=== PATIENT | female | born 1980 | race Caucasian/White ===

== ENCOUNTER 2017-05-19 16:10 | Inpatient (IN) | payer BC ==
[2017-05-19] MEDS ORDERED: CITRIC ACID/SODIUM CITRATE 30 ML UNIT-DOSE CUP PO ONE (16:52)
[2017-05-19] MEDS ORDERED: ELECTROLYTE-148 SOLN 500 ML IV ONE (16:52)
[2017-05-19] MEDS ORDERED: CEFAZOLIN 1 GM/D5W 50 ML IVPB ONE (16:54)
[2017-05-19] MEDS ORDERED: TUBERCULIN PPD 5 TU/0.1ML SYRINGE (IN PATIENT USE ONLY) ID ONE (16:54)
[2017-05-19] MEDS ORDERED: ELECTROLYTE-148 SOLN 1,000 ML IV SCH (17:00)
--- NOTE | 2017-05-19 17:00 | HP ---
Past Medical History - Admission History of Present Illness: 36 yo @ 36 5/7 wks by first trimester ultrasound, EDC 06/11/2017 complicated by: 1. AMA - s/p normal harmony screen 2. Breech presentation, s/p failed attempt at external cephalic version on 2016 3. Oligohydramnios - 5.4 cm, BPP today 03/23 4. Multiparous, desiring permanent sterilization Patient presents after being seen in the office and was found to have an AMANDA of 5cm. She presents for delivery. She denies any complaints. She reports movement, denies leakage of fluid, vaginal bleeding or contractions. History Source: Patient Limitations to Obtaining History: No Limitations - Past Medical History Cardiovascular: No: HTN Pulmonary: No: Asthma ...: 4 ...Para: 2 ...Term: 2 ...: 0 ...Spon : 1 ...EDC by Dates: 06/08/17 ...EDC by Sono: 06/11/17 Heme/Onc: No: Anemia - Past Surgical History Hx Myomectomy: No Hx Transabdominal Cerclage: No Additional Surgical History: 1986 - cyst removal (face) - Alcohol/Substance Use Hx Alcohol Use: No History of Substance Use: reports: None Home Medications - Allergies Allergies/Adverse Reactions: Allergies Allergy/AdvReac Type Severity Reaction Status Date / Time No Known Allergies Allergy Verified 05/19/17 16:54 - Home Medications Home Medications: Ambulatory Orders Vit No.130/Iron/FA [ Vitamins] 1 each PO DAILY 05/11/17 Doxylamine Succinate [Unisom] 25 mg PO DAILY 05/19/17 Family Disease History - Family Disease History Family History: Denies Review of Systems - Review of Systems Constitutional: reports: No Symptoms Neck: reports: No Symptoms Cardiovascular: reports: No Symptoms Respiratory: reports: No Symptoms Gastrointestinal: reports: No Symptoms Genitourinary: reports: No Symptoms Musculoskeletal: reports: No Symptoms Neurological: reports: No Symptoms Hematology/Lymphatic: reports: No Symptoms Psychiatric: reports: No Symptoms Physical Exam - Maternity Constitutional: Yes: Well Nourished, No Distress, Calm Neck: Yes: Supple, Trachea Midline Cardiovascular: Yes: Regular Rate and Rhythm Lungs: Clear to auscultation - Abdominal Exam/OB Number of Fetuses: Single Presentation: Breech Contractions: Yes Regularity: Irregular Heart Rate (range): 155 Category: I Accelerations: Non-Uniform Decelerations: None - Vaginal Exam/OB Vaginal Bleediing: No Dilatation (cm): 2 - Physical Exam Edema: No Psychiatric: Yes: Alert, Oriented - Labs Lab Results: PNL: A positive, antibody negative, RPR NR, HBS Ag negative, Rubella Immune, HIV negative Hemorrhage Risk Assessment - Risk Factors Medium Risk Factors: Yes: None High Risk Factors: Yes: None Risk Score: 1 Risk Level: Medium Risk Assessment/Plan 36 yo @ 36 5/7 wks, breech, oligohydramnios 1. Admit to L&D 2. Consents reviewed and signed. Previously discussed risks of CD including but not limited to infection, bleeding requiring transfusion and damage to surrounding organs such as the bowel or bladder. Discussed risk of injury to . Discussed risk of wound infection and separation. Reviewed risks of tubal ligation failure, ectopic , regret. 3. Category I FHT 4. 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
[2017-05-19 17:23] VITALS: BMI 28.3
[2017-05-19 20:55] LABS: VENOUS PH 7.31 (7.32-7.42)
[2017-05-19] MEDS ORDERED: METHYLERGONOVINE MALEATE 0.2 MG/1 ML AMP IM PRN (21:01)
[2017-05-19] MEDS ORDERED: IBUPROFEN 800 MG/8 ML IJ IVPB PRN ×2 (21:01→21:09)
[2017-05-19] MEDS ORDERED: oxyCODONE HCL 5 MG TABLET PO PRN ×2 (21:01)
[2017-05-19] MEDS ORDERED: ONDANSETRON 4 MG/2 ML VIAL IVPUSH PRN (21:10)
[2017-05-19] MEDS ORDERED: OXYTOCIN 20 UNITS in 0.9% NS 1,000 ML IV SCH (21:15)
--- NOTE | 2017-05-19 21:17 | OP ---
Operative Note - Note: Operative Date: 05/19/17 Pre-Operative Diagnosis: 36 yo P2 @ 36.5 wks with Oligohydramnious and breech, maltiparity Operation: Primary c/section and bilateral tubal ligation Findings: 1. Viable female in nicholas breech presentation 2. Normal tubes and ovaries Post-Operative Diagnosis: Same as Pre-op Surgeon: Valentine Rico Wheel Loader Operator: Jennifer Chu Anesthesiologist/INSTRUCTOR TAP DANCING: Abhishek Chau Anesthesia: Spinal Specimens Removed: 1. Bilataral portions of each tube Estimated Blood Loss (mls): 500 Drains, Volume Out (mls): 150 Fluid Volume Replaced (mls): 1,500 Operative Report Dictated: Yes
--- NOTE | 2017-05-19 21:18 | PN ---
Delivery, Single - [place] Feeding Plan Initial Plan: Exclusive throughout hospitalization
[2017-05-20 08:32] LABS: BASOPHIL 0.4 % (0-2.0); EOSINOPHIL 0.7 % (0-4.5); MCH 31.1 pg (25.7-33.7); MCHC 34.2 g/dl (32.0-36.0); MEAN CELL VOLUME 90.9 fl (80-96); MEAN PLT VOLUME 8.9 fl (7.5-11.1); NEUTROPHILS 73.9 % (42.8-82.8); PLATELET COUNT 149 K/MM3 (134-434); RDW 13.1 % (11.6-15.6); WHITE BLOOD COUNT 9.3 K/mm3 (4.0-10.0)
[2017-05-20] MEDS: PRENATAL VITAMINS W/ FOLIC ACID TABLET (FP) PO SCH (09:37)
[2017-05-20] MEDS ORDERED: DIPHTH,PERTUSS(ACELL),TET 0.5 ML DISP.SYRIN IM ONE (10:00)
--- NOTE | 2017-05-20 10:38 | PN ---
Post Progress Note - Subjective Subjective: Patient without acute complaints. Reports tolerating clear intake without nausea or vomiting. No ambulation or voiding yet, moore in place Denies fevers or chills. + breast pumping without difficulty. Passing flatus. Post Day: 1 Type of Delivery: Primary C/S Vital Signs: Vital Signs Temperature 97.9 F 05/20/17 09:30 Pulse Rate 85 05/20/17 09:30 Respiratory Rate 20 05/20/17 09:30 Blood Pressure 120/73 05/20/17 09:30 O2 Sat by Pulse Oximetry (%) 98 05/19/17 22:05 Breast Exam: Yes: Engorged Uterus: Yes: Fundus Firm Incision: Yes: Dressing dry and intact Abdomen/GI: Yes: Abdomen soft, Passing flatus, Tolerating PO. No: Tender Lochia: Yes: Serosa Lochia, amount: Small Extremities: Yes: Calves non-tender. No: Edema - Labs Labs: CBC WBC 9.3 K/mm3 (4.0-10.0) 05/20/17 08:00 RBC 3.76 M/mm3 (3.60-5.2) 05/20/17 08:00 Hgb 11.7 GM/dL (10.7-15.3) 05/20/17 08:00 Hct 34.2 % (32.4-45.2) 05/20/17 08:00 MCV 90.9 fl (80-96) 05/20/17 08:00 MCH 31.1 pg (25.7-33.7) 05/20/17 08:00 MCHC 34.2 g/dl (32.0-36.0) 05/20/17 08:00 RDW 13.1 % (11.6-15.6) 05/20/17 08:00 Plt Count 149 K/MM3 (134-434) 05/20/17 08:00 MPV 8.9 fl (7.5-11.1) 05/20/17 08:00 Neutrophils % 73.9 % (42.8-82.8) 05/20/17 08:00 Lymphocytes % 16.5 % (8-40) 05/20/17 08:00 Monocytes % 8.5 % (3.8-10.2) 05/20/17 08:00 Eosinophils % 0.7 % (0-4.5) 05/20/17 08:00 Basophils % 0.4 % (0-2.0) 05/20/17 08:00 Assessment/Plan 36 yo POD # 1 s/p primary CD, BTL, afebrile, vital signs stable, doing well 1. Continue routine postopeartive care. 2. AM CBC stable 3. Rh positive status, no rhogam indicated. 4. Encourage ambulation and incentive spirometer use 5. Continue oral pain medication 6. Anticipate discharge home postopeartive day #3 or #4
[2017-05-20] MEDS: SIMETHICONE 80 MG TAB.CHEW (FP) PO PRN ×2 (11:29→18:14)
[2017-05-20] MEDS: IBUPROFEN 600 MG TABLET (FP) PO PRN ×2 (11:29→18:14)
[2017-05-20] MEDS: ACETAMINOPHEN 325 MG TABLET (FP) PO PRN ×2 (11:30→18:15)
--- NOTE | 2017-05-20 15:52 | OP ---
DATE OF OPERATION: 05/19/2017 PREOPERATIVE DIAGNOSIS: A 36-year-old para 2 at 36 and 5/7 weeks with oligohydramnios and breech and multiparity. OPERATION: Primary section, bilateral salpingectomy. FINDINGS: 1. Viable female in nicholas breech presentation. 2. Normal tubes and ovaries. POSTOPERATIVE DIAGNOSIS: A 36-year-old para 2 at 36 and 5/7 weeks with oligohydramnios and breech and multiparity. SURGEON: Valentine Rico MD HEALTH AND SOCIAL CARE TEACHER: Jennifer Chu MD ANESTHESIOLOGIST: Abhishek Chau MD ANESTHESIA: Spinal. DESCRIPTION OF THE OPERATIVE PROCEDURE: After assuring informed consent, patient was brought to the operating room where she was placed in dorsal supine position with left lateral tilt. Abdomen was prepped and draped in sterile fashion. Pfannenstiel skin incision was carried out with scalpel and dissected bilaterally with scalpel and Bovie cautery. The fascia was incised in the midline and extended bilaterally with Bernal scissors and dissected inferiorly and superiorly with Bovie cautery. Rectus abdominis was split in the midline and dissected downwards and upwards. The peritoneum was tented with good visualization of underlying organs and entered bluntly and extended bilaterally. [place] placed to retract the bladder, and the Metzenbaum scissors were used to create the bladder flap and the bladder retracted with the lower edge of the Amalia. Uterine incision was made with scalpel and extended bilaterally with bandage scissors with good visualization of buttocks. buttocks were delivered atraumatically, wrapped with a towel, and the rest of body was gently escorted out of the uterus. Each shoulder was delivered atraumatically, and head was delivered by using Mauriceau-Veit maneuver with gentle pressure on the fundus. The cord was clamped and cut. was handed to awaiting pediatricians. Placenta was massaged and expressed out of the uterus. Excellent hemostasis was assured, and the uterus was repaired with 0 Biosyn in 2 running, locking layers; second layer being imbricating layer. The bladder flap was reapproximated with 0 Biosyn. Subsequently, each fallopian tube was identified, clamped with a Amki, and dissected above the ampullary region, entire fimbriated end and above the ampullary region. Fallopian tube was resected, tied x2 with free tie and José stitched to avoid bleeding. Both tubes returned into the abdomen. Excellent hemostasis noted, and peritoneum was repaired with 0 Biosyn. Muscle was reapproximated in the midline with 0 Biosyn. The fascia was repaired with 0 Vicryl. Subcuticular sutures were used to reapproximate subcuticular space, and skin was closed with 4-0 Biosyn in subcuticular stitch. The patient was expressed. Uterine fundus was found to be firm. All instruments and lap counts, sponges were correct x2. Dressing was applied, and patient was brought to the recovery room in stable condition. Estimated blood loss was 500 mL. Urine output was 150 mL. Patient put out 1500 mL of urine. Chanelle [id number]
[2017-05-20] MEDS ORDERED: BISACODYL 10 MG SUPP.RECT RC PRN (21:01)
[2017-05-21] MEDS: ACETAMINOPHEN 325 MG TABLET (FP) PO PRN ×4 (06:31→20:51)
[2017-05-21] MEDS: IBUPROFEN 600 MG TABLET (FP) PO PRN ×4 (06:31→20:53)
--- NOTE | 2017-05-21 08:02 | PN ---
Progress Note (short form) - Note Progress Note: pod 2 s/pc/s , doing well, ambulating , no excess vaginal bleeding CBC, BMP 05/20/17 08:00 Last Vital Signs Temp Pulse Resp BP Pulse Ox 98.1 F 87 20 104/59 98 05/20/17 22:00 05/20/17 22:00 05/20/17 22:00 05/20/17 22:00 05/19/17 22:05 abdomen soft, no distension , no cva incision dry, clean no calf tenderness plan ambulate, cbc in am, pain management
[2017-05-21] MEDS: PRENATAL VITAMINS W/ FOLIC ACID TABLET (FP) PO SCH (09:54)
[2017-05-21] MEDS: SIMETHICONE 80 MG TAB.CHEW (FP) PO PRN ×3 (11:52→20:53)
[2017-05-21] MEDS ORDERED: SENNOSIDES/DOCUSATE COMBO (SENNA PLUS) TABLET (UD) PO PRN (21:07)
[2017-05-22] MEDS: ACETAMINOPHEN 325 MG TABLET (FP) PO PRN (04:55)
[2017-05-22] MEDS: SIMETHICONE 80 MG TAB.CHEW (FP) PO PRN (04:55)
[2017-05-22] MEDS: IBUPROFEN 600 MG TABLET (FP) PO PRN (04:56)
[2017-05-22 08:56] LABS: BASOPHIL 0.4 % (0-2.0); EOSINOPHIL 1.4 % (0-4.5); MCH 30.7 pg (25.7-33.7); MCHC 33.8 g/dl (32.0-36.0); MEAN CELL VOLUME 90.8 fl (80-96); MEAN PLT VOLUME 8.9 fl (7.5-11.1); NEUTROPHILS 72.4 % (42.8-82.8); PLATELET COUNT 179 K/MM3 (134-434); RDW 13.2 % (11.6-15.6); WHITE BLOOD COUNT 7.9 K/mm3 (4.0-10.0)
[2017-05-22] MEDS: PRENATAL VITAMINS W/ FOLIC ACID TABLET (FP) PO SCH (09:03)
[2017-05-22 09:25] VITALS: BP 121/66; PULSE 83; TEMP 98.3
--- NOTE | 2017-05-24 09:56 | PATH ---
Surgical Pathology Report Patient Name: AN WARD [facility]. Rec. #: [id number] /Age/Gender: 1980 (Age: 36) / F Account: [id number] Location: [facility] OBS/CARE INFORMATION ASSOCIATE Taken: 05/19/2017 Received: 05/20/2017 Reported: 05/24/2017 Physicians: Valentine Rico M.D. Specimen(s) Received A: PLACENTA B: LEFT FALLOPIAN TUBE C: RIGHT FALLOPIAN TUBE Clinical History , 36.5 weeks breech presentation, oligohydramnios 07/18, 03/22 UTI-E. coli Tx 10/24/16 Final Diagnosis A. PLACENTA, DELIVERY: SMALL (366 GRAM) THIRD TRIMESTER PLACENTA WITH HEMATOMA, 3 VESSEL UMBILICAL CORD, AND UNREMARKABLE PLACENTAL MEMBRANES. B. LEFT FALLOPIAN TUBE, SALPINGECTOMY: FULL LUMINAL PORTION OF UNREMARKABLE FALLOPIAN TUBE, INCLUDING FIMBRIATED END. C. RIGHT FALLOPIAN TUBE, SALPINGECTOMY: FULL LUMINAL PORTION OF UNREMARKABLE FALLOPIAN TUBE, INCLUDING FIMBRIATED END. Electronically Signed Hector Riddle M.D. Gross Description A. The specimen is received fresh labeled placenta and is a 366 gram, 14.5 x 14.0 x 2.3 cm. placenta with attached membranes and umbilical cord. The attached membranes are stone, translucent with focal opacities and insert marginally. The umbilical cord measures 20 cm. in length and averages 1 cm. in diameter. The cord inserts eccentrically, 4 cm. to the nearest margin. No true knots or strictures are identified. Cut surface of the umbilical cord reveals 3 vessels. The surface is bailey-blue with minimal fibrin deposition and appropriate caliber vessels. The maternal surface is red-brown and intact. Sectioning reveals a 1.8 cm in greatest dimension hemorrhagic lesion. The remaining placental parenchyma is red-brown and spongy. Merchandiser sections are submitted in 4 cassettes as follows: 1-membrane roll and umbilical cord; 2-lesions; 3-4-full thickness sections of placenta. B. Received in formalin labeled "left fallopian tube," is a 2 cm in length fimbriated fallopian tube. The outer surface is stone-phillips and smooth. Sectioning reveals an unremarkable lumen. Merchandiser sections are submitted in 2 cassettes as follows: 1-fimbria; 2-cross sections of fallopian tube. C. Received in formalin labeled "right fallopian tube," is a 2.3 cm in length fimbriated fallopian tube. The outer surface is stone-phillips and smooth. Sectioning reveals an unremarkable lumen. Merchandiser sections are submitted in 2 cassettes as follows: 1-fimbria; 2-cross sections of fallopian tube. 05/21/201705/21/2017
== END 2017-05-22 12:07 | disposition home or self-care (01) | DRG 766 ==
LOC: JLDR 16:10 → J3W 23:02
PROVIDERS: ADMIT Obstetrics & Gynecology; ATTEND Obstetrics & Gynecology
PROC: 10D00Z1 Extraction of Products of Conception, Low, Open Approach (ICD-10-PCS; principal; 2017-05-19)
PROC: 0UB70ZZ Excision of Bilateral Fallopian Tubes, Open Approach (ICD-10-PCS; 2017-05-19)
DX: O41.03X0 Oligohydramnios, third trimester, not applicable or unspecified (principal); O32.1XX0 Maternal care for breech presentation, not applicable or unspecified; Z3A.36 36 weeks gestation of pregnancy; Z37.0 Single live birth; Z30.2 Encounter for sterilization
CPT/HCPCS: 36415; 82803; 85025; 88302-TC; 88307-TC